=== PATIENT | male | born 1970 | race American Indian/Alaskan Native ===

== ENCOUNTER 2019-01-17 13:33 | Emergency (ER) | payer OTHER, BC ==
[2019-01-17] MEDS ORDERED: FLEXERIL PO ONE (15:47)
[2019-01-17] MEDS ORDERED: IBUPROFEN PO ONE (15:47)
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
[2019-01-17 16:12] VITALS: BP 182/105
== END 2019-01-17 16:24 | disposition home or self-care (01) ==
LOC: EDBD → ED 13:33
DX: M54.5 Low back pain (principal); I10 Essential (primary) hypertension; E11.9 Type 2 diabetes mellitus without complications; E78.5 Hyperlipidemia, unspecified; V49.49XA Driver injured in collision with other motor vehicles in traffic accident, initial encounter; Y93.89 Activity, other specified; Y92.488 Other paved roadways as the place of occurrence of the external cause; Y99.8 Other external cause status